=== PATIENT | male | born 1970 | race Hispanic/Latino ===

== ENCOUNTER 2023-02-22 16:28 | Emergency (ER) | payer SELFPAY ==
--- NOTE | 2023-02-22 16:51 | EDPHYS ---
Physician Documentation [facility] Name: Arjun Mora Age: 52 yrs Sex: Male : 1970 Arrival Date: 02/22/2023 Time: 16:28 Bed 11 Private MD: ED Physician Fred Rankin HPI: 02/22 17:42 This 52 yrs old Male presents to ER via Ambulatory with complaints of rt Toothache. 17:42 Patient presents to the ED with a pain to the left lower canine for about 1 week. He rt tried to remove the tooth yesterday with a string, was not able to do so and the pain worsened. He denies other acute complaints at this time. Denies difficulty swallowing. Pain is aching nature, nonradiating, mild in severity, no other aggravating alleviating factors.. Historical: - Allergies: 16:39 No Known Allergies; mb9 - Home Meds: 16:39 None [Active]; mb9 - PMHx: 16:39 Hypertensive disorder; mb9 - PSHx: 16:39 None; mb9 - Immunization history:: Adult Immunizations up to date. - Social history:: Smoking status: Patient reports the use of cigarette tobacco products, smokes one pack cigarettes per day. - Family history:: not pertinent. ROS: 17:42 Constitutional: Negative for fever, chills, and weight loss, Respiratory: Negative for rt shortness of breath, cough, wheezing, and pleuritic chest pain, Abdomen/GI: Negative for abdominal pain, nausea, vomiting, diarrhea, and constipation, Skin: Negative for injury, rash, and discoloration, Neuro: Negative for headache, weakness, numbness, tingling, and seizure, Psych: Negative for depression, anxiety, suicide ideation, homicidal ideation, and hallucinations. 17:42 ENT: Positive for Positive for dental pain, negative for difficulty swallowing. Exam: 17:42 Constitutional: This is a well developed, well nourished patient who is awake, alert, rt and in no acute distress. Head/Face: Normocephalic, atraumatic. Respiratory: Lungs have equal breath sounds bilaterally, clear to auscultation and percussion. No rales, rhonchi or wheezes noted. No increased work of breathing, no retractions or nasal flaring. Skin: Warm, dry with normal turgor. Normal color with no rashes, no lesions, and no evidence of cellulitis. MS/ Extremity: Pulses equal, no cyanosis. Neurovascular intact. Full, normal range of motion. Neuro: Awake and alert, GCS 15, oriented to person, place, time, and situation. Cranial nerves II-XII grossly intact. Motor strength 5/5 in all extremities. Sensory grossly intact. Cerebellar exam normal. Normal gait. Psych: Awake, alert, with orientation to person, place and time. Behavior, mood, and affect are within normal limits. 17:42 ENT: Generally poor dentition, missing lower incisors, periodontal disease is obvious. Multiple dental caries noted. No tongue or sublingual swelling, no stridor. Vital Signs: 16:37 BP 148 / 97; Pulse 82; Resp 16; Temp 98.6(O); Pulse Ox 100% on R/A; Weight 70.31 kg; mb9 Height 5 ft. 3 in. ; Pain 10/10; 17:15 BP 130 / 89; Pulse 74; Resp 16; Pulse Ox 98% on R/A; mb9 16:37 Body Mass Index 27.46 (70.31 kg, 160.02 cm) mb9 16:37 Pain Scale: Adult mb9 MDM: 16:43 Patient medically screened. rt 17:42 Differential diagnosis: dental caries, gingivitis, dental abscess. Data reviewed: vital rt signs, nurses notes. Test considered but Not performed: CT: No evidence clinically for RPA, [employer]ICE, Zachary's angina, dental abscess, CT scan not indicated. Counseling: I had a detailed discussion with the patient and/or guardian regarding: the historical points, exam findings, and any diagnostic results supporting the discharge/admit diagnosis, the need for outpatient follow up. Administered Medications: 17:10 Drug: Ketorolac IM 15 mg Route: IM; Site: left deltoid; mb9 17:15 Follow up: Response: No adverse reaction mb9 Disposition Summary: 02/22/23 16:50 Discharge Ordered Location: Home rt Problem: an ongoing problem rt Symptoms: are unchanged rt Condition: Stable rt Diagnosis - Dental caries, unspecified rt Followup: rt - With: Private Physician - When: 2 - 3 days - Reason: Discharge Instructions: - Discharge Summary Sheet rt - Dental Caries, Adult rt - Dental Pain rt Forms: - Medication Reconciliation Form rt - Thank You Letter rt - Antibiotic Education rt - Prescription Opioid Use rt - [email or web address] rt Prescriptions: - Amoxicillin 875 mg Oral Tablet - take 1 tablet by ORAL route every 12 hours for 10 days; 20 tablet; Refills: 0, rt Product Selection Permitted Signatures: Lisha Alanis RN RN mb9 Fred Rankin MD MD rt
--- NOTE | 2023-02-22 16:51 | ER ---
Nurse's Notes [facility] Name: Arjun Mora Age: 52 yrs Sex: Male : 1970 Arrival Date: 02/22/2023 Time: 16:28 Bed 11 Private MD: Diagnosis: Dental caries, unspecified Presentation: 02/22 16:37 Chief complaint: Patient states: "My left lower tooth has been killing me for 2 weeks mb9 now. I tried to remove it with a string but it didn't work and made the pain worse. I haven't had time to go to a dentist". Coronavirus screen: Vaccine status: Patient reports receiving the 2nd dose of the covid vaccine. Ebola Screen: No symptoms or risks identified at this time. Initial Sepsis Screen: Does the patient meet any 2 criteria? No. Patient's initial sepsis screen is negative. Does the patient have a suspected source of infection? No. Patient's initial sepsis screen is negative. Risk Assessment: Do you want to hurt yourself or someone else? Patient reports no desire to harm self or others. Onset of symptoms was 2022. 16:37 Method Of Arrival: Ambulatory mb9 16:37 Acuity: ORIANA 4 mb9 Triage Assessment: 16:39 General: Appears in no apparent distress. Behavior is cooperative. Pain: Complains of mb9 pain in mouth. EENT: Poor dentition noted. Absence of teeth noted - lower left central incisor (#24) Reports pain. Respiratory: Airway is patent Respiratory effort is even, unlabored, Respiratory pattern is regular, symmetrical. Derm: Skin is pink, warm \\T\\ dry. Musculoskeletal: Range of motion: intact in all extremities. Historical: - Allergies: 16:39 No Known Allergies; mb9 - Home Meds: 16:39 None [Active]; mb9 - PMHx: 16:39 Hypertensive disorder; mb9 - PSHx: 16:39 None; mb9 - Immunization history:: Adult Immunizations up to date. - Social history:: Smoking status: Patient reports the use of cigarette tobacco products, smokes one pack cigarettes per day. - Family history:: not pertinent. Screenin:10 [facility] ED Fall Risk Assessment (Adult) History of falling in the last 3 months, mb9 including since admission No falls in past 3 months (0 pts) Confusion or Disorientation No (0 pts) Intoxicated or Sedated No (0 pts) Impaired Gait No (0 pts) Mobility Assist Device Used No (0 pt) Altered Elimination No (0 pt) Score/Fall Risk Level 0 - 2 = Low Risk Oriented to surroundings, Maintained a safe environment, Educated pt \\T\\ family on fall prevention, incl call for assistance when getting out of bed. Abuse screen: Denies threats or abuse. Nutritional screening: No deficits noted. Tuberculosis screening: No symptoms or risk factors identified. Assessment: 16:40 Reassessment: see triage assessment. mb9 Vital Signs: 16:37 BP 148 / 97; Pulse 82; Resp 16; Temp 98.6(O); Pulse Ox 100% on R/A; Weight 70.31 kg; mb9 Height 5 ft. 3 in. ; Pain 10/10; 17:15 BP 130 / 89; Pulse 74; Resp 16; Pulse Ox 98% on R/A; mb9 16:37 Body Mass Index 27.46 (70.31 kg, 160.02 cm) mb9 16:37 Pain Scale: Adult mb9 ED Course: 16:32 Patient arrived in ED. mr 16:37 Arm band placed on. mb9 16:38 Fred Rankin MD is Attending Physician. rt 16:39 Triage completed. mb9 16:40 Call light in reach. Side rails up X 1. Client placed on continuous cardiac and pulse mb9 oximetry monitoring. NIBP monitoring applied. 17:07 Char Troncoso, RN is Primary Nurse. 3 17:10 No provider procedures requiring assistance completed. Patient did not have IV access mb9 during this emergency room visit. Administered Medications: 17:10 Drug: Ketorolac IM 15 mg Route: IM; Site: left deltoid; mb9 17:15 Follow up: Response: No adverse reaction mb9 Medication: 16:40 VIS not applicable for this client. mb9 Outcome: 16:50 Discharge ordered by MD. rt 17:16 Discharged to home ambulatory. mb9 17:16 Condition: stable 17:16 Discharge instructions given to patient, Instructed on discharge instructions, follow up and referral plans. Demonstrated understanding of instructions, follow-up care, medications, Prescriptions given X 1. 17:16 Patient left the ED. mb9 Signatures: Lisha Patiño Erin, KEVIN RN 3 Lisha Alanis RN RN mb9 Fred Rankin MD MD rt
[2023-02-22] MEDS ORDERED: KETOROLAC 30 MG/ML INJ ONE (17:20)
[2023-02-22 17:22] VITALS: TEMP 98.6
[2023-02-22 17:23] VITALS: BP 130/89; O2SAT 98
== END 2023-02-22 17:16 | disposition home or self-care (01) ==
LOC: ER 16:28
DX: K02.9 Dental caries, unspecified (principal); F17.210 Nicotine dependence, cigarettes, uncomplicated
CPT/HCPCS: 96372; 99284